=== PATIENT | female | born 1945 | race American Indian/Alaskan Native ===

== ENCOUNTER 2016-09-13 09:10 | Emergency (ER) | payer SELFPAY ==
--- NOTE | 2016-09-13 09:42 | Emergency Department Report ---
ED Chest Pain HPI - General Chief Complaint: Fall Stated Complaint: FELL/LEFT SIDE PAIN Source: patient Mode of arrival: Ambulatory Limitations: No Limitations - History of Present Illness Initial Comments: 71 y/o female complain of chest pain after falling after getting out the shower .pt date she out of blood pressure medication x 1 year .pt complain of headache with dizziness.pt complain of left ribs pain.no prior medication given . - Related Data Home Medications Medication Instructions Recorded Confirmed Last Taken metFORMIN [Glucophage] 500 mg PO BID 10/05/15 10/05/15 Unknown Simvastatin [Zocor TAB] 20 mg PO DAILY 10/06/15 10/06/15 Unknown Previous Rx's Medication Instructions Recorded Last Taken Type amLODIPine [Norvasc] 10 mg PO DAILY #30 tablet 10/09/15 Unknown Rx hydrALAZINE [Apresoline TAB] 75 mg PO Q8HR #90 tablet 10/09/15 Unknown Rx cloNIDine [Catapres] 0.2 mg PO BID #60 tablet 10/10/15 Unknown Rx Allergies Allergy/AdvReac Type Severity Reaction Status Date / Time No Known Allergies Allergy Verified 10/05/15 08:58 ED Review of Systems ROS: Stated complaint: FELL/LEFT SIDE PAIN Other details as noted in HPI ED Past Medical Hx - Past Medical History Hx Hypertension: Yes Hx Congestive Heart Failure: No Hx Diabetes: Yes Hx Asthma: No Hx COPD: No Additional medical history: Hypercholesterolemia, coronary artery disease - Surgical History Additional Surgical History: Cardiac catheterization "to remove a blockage" 2009 - Social History Smoking Status: Never Smoker - Medications Home Medications: Home Medications Medication Instructions Recorded Confirmed Last Taken Type metFORMIN [Glucophage] 500 mg PO BID 10/05/15 10/05/15 Unknown History Simvastatin [Zocor TAB] 20 mg PO DAILY 10/06/15 10/06/15 Unknown History amLODIPine [Norvasc] 10 mg PO DAILY #30 tablet 10/09/15 Unknown Rx hydrALAZINE [Apresoline TAB] 75 mg PO Q8HR #90 tablet 10/09/15 Unknown Rx cloNIDine [Catapres] 0.2 mg PO BID #60 tablet 10/10/15 Unknown Rx ED Physical Exam - General Limitations: No Limitations ED Course Vital Signs 09/13/16 09:20 Temperature 98.7 F Pulse Rate 85 Respiratory 18 Rate Blood Pressure 258/110 O2 Sat by Pulse 98 Oximetry Critical care attestation.: If time is entered above; I have spent that time in minutes in the direct care of this critically ill patient, excluding procedure time. ED Disposition Condition: Stable
--- NOTE | 2016-09-13 09:46 | Emergency Department Report ---
Chief Complaint: Fall Stated Complaint: FELL/LEFT SIDE PAIN Time Seen by Provider: 09/13/16 09:43 - HPI History of Present Illness: 71 female complain of chest pain and left side pain after fall on monday .pt complain of left flank pain ,headache and dizziness.no prior medication given .pt state she was getting out the shower and slipped and fell on floor x 3 days go. - ROS Review of Systems: per HPI - Exam Vital Signs: Vital Signs 09/13/16 09:20 Temperature 98.7 F Pulse Rate 85 Respiratory 18 Rate Blood Pressure 258/110 O2 Sat by Pulse 98 Oximetry Physical Exam: GENERAL: The patient is well-developed and well-nourished. Patient is in NAD. HENT: Normocephalic. Atraumatic. Patient has moist mucous membranes. Throat: No erythema, swelling or exudates. EYES: Extraocular motions are intact, PERRL NECK: Supple. No meningitic signs are noted. There is no adenopathy noted. CHEST/LUNGS: Clear to auscultation bilaterally. No wheezing, rales or rhonchi noted. There is no respiratory distress noted. HEART/CARDIOVASCULAR: Regular rate and rhythm. Normal S1 S2. No murmurs, rubs , clicks, or gallops. ABDOMEN: Abdomen is soft, nontender.. Bowel sounds normoactive. There is no abdominal distention. Negative rebound tenderness. : Deferred. SKIN: There is no rash. There is no edema. There is no diaphoresis. NEURO: The patient is A&Ox3. The patient has no focal neurologic deficits. MUSCULOSKELETAL: tenderness to the left rib. There is no limitation range of motion. PSYCH: Pt has appropriate mood and affect. MSE screening note: Focused history and physical exam performed. Due to findings the following was ordered: ED Disposition for MSE Condition: Stable
[2016-09-13] MEDS ORDERED: NORCO 5/325 PO ONE (10:32)
[2016-09-13] MEDS ORDERED: CATAPRES PO ONE (10:55)
[2016-09-13] MEDS ORDERED: APRESOLINE PO ONE (10:57)
--- NOTE | 2016-09-13 10:57 | XRay Report ---
LEFT RIBS, 2 VIEWS: HISTORY: Pain after fall. FINDINGS: No displaced left rib deformity is detected. The left lung is well-aerated. Mild cardiomegaly is noted which appears to be new since 10/05/15. IMPRESSION: No left rib deformity is appreciated on x-ray.
--- NOTE | 2016-09-13 11:04 | Emergency Department Report ---
HPI - General Chief Complaint: Fall Time Seen by Provider: 09/13/16 10:10 - HPI HPI: Room 22 The chief complaint of left rib pain after fall. The patient states 2 days ago she slipped and fell in the shower landing on her left ribs. The patient states she is left rib pain and chest pain when she takes deep breaths since the fall. Patient denies losing consciousness during the fall. The patient gives her pain a score of 10/10. The patient states she does not have insurance so she has been unable to do a refill for her medications for hypertension. Location: Left ribs, see above Duration: 2 days Quality: Pain Severity: 10/10 Modifying factors: [see above] Context: [see above] Mode of transportation: [not driving] ED Past Medical Hx - Past Medical History Hx Hypertension: Yes Hx Diabetes: Yes Additional medical history: Hypercholesterolemia, coronary artery disease - Surgical History Additional Surgical History: Cardiac catheterization "to remove a blockage" 2009 - Family History Family history: no significant - Social History Smoking Status: Never Smoker - Medications Home Medications: Home Medications Medication Instructions Recorded Confirmed Last Taken Type HYDROcodone/APAP 5-325 [[place] 1 - 2 each PO Q6HR PRN #20 tablet 09/13/16 Unknown Rx 5/325] Simvastatin [Zocor TAB] 20 mg PO DAILY #90 tablet 09/13/16 Unknown Rx amLODIPine [Norvasc] 10 mg PO DAILY #90 tablet 09/13/16 Unknown Rx cloNIDine [Catapres] 0.2 mg PO BID #90 tablet 09/13/16 Unknown Rx hydrALAZINE [Apresoline TAB] 75 mg PO Q8HR #90 tablet 09/13/16 Unknown Rx metFORMIN [Glucophage] 500 mg PO BID #90 tablet 09/13/16 Unknown Rx ED Review of Systems ROS: Stated complaint: FELL/LEFT SIDE PAIN Other details as noted in HPI Comment: All other systems reviewed and negative Constitutional: denies: chills, fever Eyes: denies: eye pain, eye discharge, vision change ENT: denies: ear pain, throat pain Respiratory: denies: cough, shortness of breath, wheezing Cardiovascular: denies: chest pain, palpitations Endocrine: no symptoms reported Gastrointestinal: denies: abdominal pain, nausea, diarrhea Genitourinary: denies: urgency, dysuria, discharge Musculoskeletal: myalgia Skin: denies: rash, lesions Neurological: denies: headache, weakness, paresthesias Psychiatric: denies: anxiety, depression Hematological/Lymphatic: denies: easy bleeding, easy bruising Physical Exam - Physical Exam Vital Signs: Vital Signs 09/13/16 09/13/16 09/13/16 09:20 10:31 10:32 Temperature 98.7 F Pulse Rate 85 78 Respiratory 18 18 Rate Blood Pressure 258/110 Blood Pressure 251/99 [Left] O2 Sat by Pulse 98 Oximetry Physical Exam: GENERAL: The patient is well-developed well-nourished female lying on stretcher not appearing to be in acute distress. [] HEENT: Normocephalic. Atraumatic. Extraocular motions are intact. Patient has moist mucous membranes. NECK: Supple. Trachea midline CHEST/LUNGS: Clear to auscultation. There is no respiratory distress noted. HEART/CARDIOVASCULAR: Regular. There is no tachycardia. There is no gallop rub or murmur. ABDOMEN: Abdomen is soft, nontender. Patient has normal bowel sounds. There is no abdominal distention. SKIN: There is no rash. There is no diaphoresis. NEURO: The patient is awake, alert, and oriented. The patient is cooperative. The patient has normal speech MUSCULOSKELETAL: There is no evidence of acute injury. ED Course Vital Signs 09/13/16 09/13/16 09/13/16 09:20 10:31 10:32 Temperature 98.7 F Pulse Rate 85 78 Respiratory 18 18 Rate Blood Pressure 258/110 Blood Pressure 251/99 [Left] O2 Sat by Pulse 98 Oximetry - Reevaluation(s) Reevaluation #1: 09/13/16 12:14 He improved to 155/71 ED Medical Decision Making - EKG Data -: EKG Interpreted by Me EKG shows normal: sinus rhythm Rate: normal - EKG Data Interpretation: unchanged when compared t (10/05/2015), nonspecific ST-T wave rakesh - Radiology Data Radiology results: image reviewed (chest x-ray with left rib series) interpreted by me: Chest x-ray with left rib series-no displaced rib fracture seen. No pneumothorax - Differential Diagnosis rib fracture, rib contusion, pneumothorax, Critical care attestation.: If time is entered above; I have spent that time in minutes in the direct care of this critically ill patient, excluding procedure time. ED Disposition Clinical Impression: Rib pain on left side, Hypertension Disposition: DISCHARGED TO HOME OR SELFCARE Is pt being admited?: No Does the pt Need Aspirin: No Condition: Stable Instructions: Chest Pain (ED), Hypertension (ED) Additional Instructions: Return to the emergency department immediately should you develop worsening symptoms, fever, inability to tolerate food or liquid or any other concerns. Prescriptions: HYDROcodone/APAP 5-325 [[place] 5/325] 1 - 2 each PO Q6HR PRN #20 tablet PRN Reason: Pain Simvastatin [Zocor TAB] 20 mg PO DAILY #90 tablet amLODIPine [Norvasc] 10 mg PO DAILY #90 tablet cloNIDine [Catapres] 0.2 mg PO BID #90 tablet hydrALAZINE [Apresoline TAB] 75 mg PO Q8HR #90 tablet metFORMIN [Glucophage] 500 mg PO BID #90 tablet Referrals: [facility] [Outside] - 3-5 Days Time of Disposition: 12:14
[2016-09-13 12:16] VITALS: BP 155/74
== END 2016-09-13 12:30 | disposition home or self-care (01) ==
LOC: ED 09:10
DX: R07.81 Pleurodynia (principal); I10 Essential (primary) hypertension; E11.9 Type 2 diabetes mellitus without complications; E78.00 Pure hypercholesterolemia, unspecified; I25.10 Atherosclerotic heart disease of native coronary artery without angina pectoris; W01.0XXA Fall on same level from slipping, tripping and stumbling without subsequent striking against object, initial encounter
CPT/HCPCS: 93005; 93010; 99283

== ENCOUNTER 2016-10-03 18:48 | Emergency (ER) | payer OTHER ==
[2016-10-03 22:01] LABS: Basophils % (Auto) 0.7 % (0.0-1.8); Eosinophils % (Auto) 0.6 % (0.0-4.3); Hematocrit 34.1 % (30.3-42.9); Hemoglobin 10.8 gm/dl (10.1-14.3); Mean Corpuscular HGB Conc 32 % (30-34); Mean Corpuscular Volume 80 fl (79-97); Platelet Count 208 K/mm3 (140-440); Red Blood Count 4.27 M/mm3 (3.65-5.03); Red Cell Distribution Width 14.4 % (13.2-15.2); White Blood Count 7.1 K/mm3 (4.5-11.0)
[2016-10-03 22:03] LABS: Mean Corpuscular Hemoglobin 25 pg (28-32)
[2016-10-03 22:15] LABS: Anion Gap 19 mmol/L; BUN/Creatinine Ratio 14.54; Blood Urea Nitrogen 16 mg/dL (7-17); Calcium 9.8 mg/dL (8.4-10.2); Carbon Dioxide 25 mmol/L (22-30); Glucose 145 mg/dL (65-100); Potassium 3.9 mmol/L (3.6-5.0); Sodium 138 mmol/L (137-145)
--- NOTE | 2016-10-04 02:52 | Emergency Department Report ---
ED Palpitations HPI - General Chief Complaint: Arrhythmia/Palpitations Stated Complaint: ELEV BP/PALPATATIONS Time Seen by Provider: 10/04/16 02:50 Source: patient Mode of arrival: Ambulatory Limitations: No Limitations - History of Present Illness Initial Comments: This is a patient with a multitude of questions. She uses the ED for her primary care. She states she is unable to access primary care otherwise. Her complaints include her elevated blood pressure and need for filling her prescriptions. She also reports occasionally feeling flutters in her chest. Pain in her left hip as well. I indicated to the patient that I couldn't be her primary care physician but I be happy to address any acute issues that she has. She chose for me to address her need to have her prescriptions refilled for her blood pressure as well as the palpitations she is sensing. She denies causing pain she denies than bothering her at night. She has not noted any specific activities make them better or worse. MD Complaint: palpitations -: Gradual, week(s) Context: occured during rest Associated Symptoms: denies other symptoms - Related Data Previous Rx's Medication Instructions Recorded Last Taken Type HYDROcodone/APAP 5-325 [[place] 1 - 2 each PO Q6HR PRN #20 tablet 09/13/16 Unknown Rx 5/325] Simvastatin [Zocor TAB] 20 mg PO DAILY #90 tablet 09/13/16 Unknown Rx metFORMIN [Glucophage] 500 mg PO BID #90 tablet 09/13/16 Unknown Rx Metoprolol/Hydrochlorothiazide 1 tab PO BID #60 tablet 10/04/16 Unknown Rx [Metoprolol HCTZ 50-25 mg TAB] amLODIPine [Norvasc] 10 mg PO DAILY #90 tablet 10/04/16 Unknown Rx cloNIDine [Catapres] 0.2 mg PO BID #90 tablet 10/04/16 Unknown Rx Allergies Allergy/AdvReac Type Severity Reaction Status Date / Time No Known Allergies Allergy Verified 10/05/15 08:58 ED Review of Systems ROS: Stated complaint: ELEV BP/PALPATATIONS Other details as noted in HPI Constitutional: denies: chills, fever Eyes: denies: eye pain, eye discharge, vision change ENT: denies: ear pain, throat pain Respiratory: denies: cough, shortness of breath, wheezing Cardiovascular: palpitations. denies: chest pain Endocrine: no symptoms reported Gastrointestinal: denies: abdominal pain, nausea, diarrhea Genitourinary: denies: urgency, dysuria, discharge Musculoskeletal: other (L hip discomforts). denies: back pain, joint swelling, arthralgia Skin: denies: rash, lesions Neurological: denies: headache, weakness, paresthesias Psychiatric: denies: anxiety, depression Hematological/Lymphatic: denies: easy bleeding, easy bruising ED Past Medical Hx - Past Medical History Previous Medical History?: Yes Hx Hypertension: Yes Hx Congestive Heart Failure: No Hx Diabetes: Yes Hx Asthma: No Hx COPD: No Additional medical history: Hypercholesterolemia, coronary artery disease - Surgical History Past Surgical History?: Yes Additional Surgical History: Cardiac catheterization "to remove a blockage" 2009 - Social History Smoking Status: Never Smoker - Medications Home Medications: Home Medications Medication Instructions Recorded Confirmed Last Taken Type HYDROcodone/APAP 5-325 [[place] 1 - 2 each PO Q6HR PRN #20 tablet 09/13/16 Unknown Rx 5/325] Simvastatin [Zocor TAB] 20 mg PO DAILY #90 tablet 09/13/16 Unknown Rx metFORMIN [Glucophage] 500 mg PO BID #90 tablet 09/13/16 Unknown Rx Metoprolol/Hydrochlorothiazide 1 tab PO BID #60 tablet 10/04/16 Unknown Rx [Metoprolol HCTZ 50-25 mg TAB] amLODIPine [Norvasc] 10 mg PO DAILY #90 tablet 10/04/16 Unknown Rx cloNIDine [Catapres] 0.2 mg PO BID #90 tablet 10/04/16 Unknown Rx ED Physical Exam - General Limitations: No Limitations General appearance: alert, in no apparent distress - Head Head exam: Present: atraumatic, normocephalic - Eye Eye exam: Present: normal appearance. Absent: scleral icterus - ENT ENT exam: Present: normal orophraynx, mucous membranes moist - Neck Neck exam: Present: normal inspection, other (no carotid bruit or jvd). Absent : tenderness, lymphadenopathy - Respiratory Respiratory exam: Present: normal lung sounds bilaterally. Absent: respiratory distress - Cardiovascular Cardiovascular Exam: Present: regular rate, normal rhythm. Absent: systolic murmur, diastolic murmur, rubs, gallop - GI/Abdominal GI/Abdominal exam: Present: soft, normal bowel sounds. Absent: tenderness - Extremities Exam Extremities exam: Present: normal inspection, full ROM. Absent: pedal edema, calf tenderness - Back Exam Back exam: Present: normal inspection. Absent: tenderness, CVA tenderness (R), CVA tenderness (L), vertebral tenderness - Neurological Exam Neurological exam: Present: alert, oriented X3, normal gait - Psychiatric Psychiatric exam: Present: normal affect, normal mood - Skin Skin exam: Present: warm, dry, intact, normal color. Absent: rash ED Course Vital Signs 10/03/16 10/04/16 20:24 04:01 Temperature 98.3 F Pulse Rate 82 85 Respiratory 18 17 Rate Blood Pressure 228/100 Blood Pressure 216/110 [Left] O2 Sat by Pulse 99 97 Oximetry - Reevaluation(s) Reevaluation #1: 10/04/16 02:51 ECG at 2014 with normal sinus rhythm at 85 bpm with a normal MT and QRS. Left axis deviation mild. Noted left ventricular hypertrophy. Nonspecific ST-T wave abnormalities are noted with Q waves septally noted. Morphology very similar to ECG from 09/13/2016 Reevaluation #2: 10/04/16 06:12 Patient with unremarkable exam in general. ECG is noted. I did add a TSH after discussion with the patient and her indicating that she has been on thyroxine in the past. Her level is appropriate. All her other blood tests are appropriate as well. Patient is currently taking clonidine hydralazine and amlodipine for her blood pressure. Patient indicates to me that she is not doing well in the hydralazine that she is taking for her blood pressure. I am suspicious that the patient is having occasional PVCs. I was not able to document these here but that is my suspicion. We'll switch her from hydralazine to metoprolol/HCTZ. Believe this could have the combined effect of hopefully hopefully helping with the PVCs as well as lowering her blood pressure more appropriately. I Did strongly encourage her to follow up with primary physician. She states that she has plans to move back home to [place]. ECG without acute tenderness suspect acute coronary process at this time. Her blood pressure is quite elevated but I do not see any signs of end organ damage at this time. Safe for home. 10/04/16 06:12 ED Medical Decision Making - Lab Data Result diagrams: 10/03/16 21:39 10/03/16 21:39 Critical care attestation.: If time is entered above; I have spent that time in minutes in the direct care of this critically ill patient, excluding procedure time. ED Disposition Clinical Impression: Heart palpitations Hypertension Qualifiers: Hypertension type: essential hypertension Qualified Code(s): I10 - Essential ( primary) hypertension Disposition: DISCHARGED TO HOME OR SELFCARE Is pt being admited?: No Does the pt Need Aspirin: No Condition: Stable Instructions: Palpitations (ED), Hypertension (ED) Additional Instructions: Start your new medication (Metoprolol/HCTZ) with only one pill daily for 3 days then to 1 pill morning and evening. It is very important that you follow up with your regular doctor. Prescriptions: amLODIPine [Norvasc] 10 mg PO DAILY #90 tablet cloNIDine [Catapres] 0.2 mg PO BID #90 tablet Metoprolol/Hydrochlorothiazide [Metoprolol HCTZ 50-25 mg TAB] 1 tab PO BID #60 tablet Referrals: ISSA HE MD [Staff Physician] - 3-5 Days
[2016-10-04 04:02] VITALS: BP 216/110
== END 2016-10-04 04:17 | disposition home or self-care (01) ==
LOC: ED 18:48
DX: R00.2 Palpitations (principal); I10 Essential (primary) hypertension; E11.9 Type 2 diabetes mellitus without complications; E78.00 Pure hypercholesterolemia, unspecified; I25.10 Atherosclerotic heart disease of native coronary artery without angina pectoris
CPT/HCPCS: 36415; 80048; 84443; 84484; 85025; 93005; 93010; 99284